=== PATIENT | female | born 1995 | race Two or more races ===

== ENCOUNTER 2018-10-30 12:07 | Outpatient (CLI) | payer OTHER | END 2018-10-30 13:50 | disposition home or self-care (01) | LOC: EDBD 12:07 → LAB 12:07 | DX: J11.1 Influenza due to unidentified influenza virus with other respiratory manifestations (principal); A49.3 Mycoplasma infection, unspecified site; R50.9 Fever, unspecified ==

== ENCOUNTER 2019-09-03 19:00 | Emergency (ER) | payer OTHER ==
[~2019-09-03] VITALS: Ht 165.1 cm; Wt 67.6 kg
[2019-09-03] MEDS ORDERED: OMEPRAZOLE 40 MG. (19:34)
== END 2019-09-03 21:50 | disposition home or self-care (01) ==
LOC: ER 19:00
DX: K29.60 Other gastritis without bleeding (principal)

== ENCOUNTER 2020-06-09 08:26 | Emergency (ER) | payer OTHER ==
[~2020-06-09] VITALS: Ht 165.1 cm; Wt 70.3 kg
[~2020-06-09 08:26] MED LIST: OMEPRAZOLE 40 MG.
[2020-06-09] MEDS ORDERED: DIURETIC (08:33)
[2020-06-09] MEDS ORDERED: ZITHROMAX500 MG PO (10:14)
[2020-06-09] MEDS ORDERED: CLARITIN10 M1 PO (10:18)
== END 2020-06-09 10:19 | disposition home or self-care (01) ==
LOC: ER 08:26
DX: L29.8 Other pruritus (principal)